=== PATIENT | male | born 1990 | race Caucasian/White ===

== ENCOUNTER 2022-07-03 14:10 | Emergency (ER) | payer OTHER, SELFPAY ==
[2022-07-03 14:20] VITALS: BP 128/83; PULSE 89; RESP 16; TEMP 37.3; O2SAT 99
--- NOTE | 2022-07-03 15:11 | ED.URI ---
HPI - URI/Sore Throat General Chief Complaint: Upper Respiratory Infection Stated Complaint: fever/sore throat Time Seen by Provider: 07/03/22 15:05 History of Present Illness HPI Narrative: 31-year-old male presented for complaint of sore throat, headache, fever, and vomiting for 3 days. Endorses fever up to 104. Last emesis was yesterday. He has not tried to eat anything today, but has kept down liquids today. Denies abdominal pain, shortness of breath, wheezing or lethargy. He is maintaining secretions. Taking tylenol and ibuprofen for symptoms. Denies sick contacts. Related Data Home Medications Medication Instructions Recorded Confirmed escitalopram oxalate 20 mg tablet 20 mg PO DAILY 07/03/22 07/03/22 omeprazole magnesium 20 mg 20 mg PO DAILY 07/03/22 07/03/22 capsule,delayed release (Acid Desizing Machine Operator Head End (omeprazole)) Allergies Allergy/AdvReac Type Severity Reaction Status Date / Time No Known Allergies Allergy Mild Verified 07/03/22 14:32 Review of Systems Review of Systems: CONSTITUTIONAL: reports body aches, fever, chills, sweats. EYES: Denies visual changes, redness, or discharge. ENT: Denies rhinorrhea, congestion, or otalgia. CARDIOVASCULAR: Denies chest pain, palpitations, or edema. RESPIRATORY: Denies dyspnea. GASTROINTESTINAL: Denies abdominal pain or diarrhea. SKIN: Denies rash, itching, or wounds. MUSCULOSKELETAL: Denies back pain, joint pain [facility] Family History Family History (Updated 12/23/13 @ 07:13 by DOCTOR UNKNOWN) Father Hypertension Family history of cleft palate Social History Social History Second hand tobacco smoke exposure: Yes Alcohol intake: never Exam Narrative: GENERAL: Ill-appearing, no acute distress. EYES: conjunctivae clear ENT: Mucous membranes moist. TMs pearly laughlin with normal light reflex bilaterally; no tragal tenderness. Oropharynx erythematous Tonsils enlarged 3+ with exudate. No drooling, no hoarseness, no trismus, uvula midline. No tripod positioning, hot potato voice, or soft palate swelling. NECK: Supple. No lymphadenopathy CHEST: Clear to auscultation, breath sounds equal. No respiratory distress, speaks in full sentences. HEART: Regular rate and rhythm. No murmur heard. SKIN: Warm, dry, no rash. NEURO: Alert and oriented x3. Course Course Emergency Course: Patient is aware of diagnosis, understands and agrees to treatment plan. Anticipatory guidance given. Patient agrees to follow-up as directed and is aware of reasons to seek care at the emergency department. Portions of this record may have been created with voice recognition software Level of Care: Express Care Visit Vital Signs Vital signs: Vital Signs Temperature 99.1 F 07/03/22 14:20 Pulse Rate 89 07/03/22 14:20 Respiratory Rate 16 07/03/22 14:20 Blood Pressure 128/83 07/03/22 14:20 Pulse Oximetry 99 07/03/22 14:20 Oxygen Delivery Room Air 07/03/22 14:20 Temperature 99.1 F 07/03/22 14:20 Pulse Rate 89 07/03/22 14:20 Respiratory Rate 16 07/03/22 14:20 Blood Pressure 128/83 07/03/22 14:20 Pulse Oximetry 99 07/03/22 14:20 Oxygen Delivery Room Air 07/03/22 14:20 MDM - URI/Sore Throat MDM Narrative Medical decision making narrative: strep result reviewed with pt. Advise supportive treatments. Patient is appropriate for outpatient treatment and follow-up. Differential Diagnosis Differential diagnosis: Likely upper respiratory infection, viral infection and pharyngitis Lab Data Labs: Strep Screen Positive Group A Strep *(Reference Range: Negative)* Discharge Plan Discharge Clinical Impression: Strep pharyngitis Patient Disposition: Home, Self-Care Condition: Stable Instructions: Antibiotic Form, Strep Throat (ED) Additional Instructions: - Take the antibiotic as directed. Fever and sore throat typically resolve within one to three days. Most
== END 2022-07-03 15:16 | disposition home or self-care (01) ==
PROVIDERS: Emergency Provider Nurse Practitioner Family
DX: J02.0 Streptococcal pharyngitis (principal)
CPT/HCPCS: 87880; 99213; G0463

== ENCOUNTER 2022-08-01 10:24 | Emergency (ER) | payer OTHER, SELFPAY ==
--- NOTE | 2022-08-01 10:53 | ED.URI ---
HPI - URI/Sore Throat General Chief Complaint: Upper Respiratory Infection Stated Complaint: cough,not feeling well Time Seen by Provider: 08/01/22 10:53 Source: patient Mode of arrival: ambulatory Limitations: no limitations History of Present Illness HPI Narrative: Patient is a 31-year-old male that presents with mild sore throat and cough for 3 days. Reports significant other has strep and would like to be tested. States they both had strep last month. Denies any ear pain, congestion, fever, chills, shortness of breath. Still able the eat and drink normally Related Data Home Medications Medication Instructions Recorded Confirmed escitalopram oxalate 20 mg tablet 20 mg PO DAILY 07/03/22 08/01/22 omeprazole magnesium 20 mg 20 mg PO DAILY 07/03/22 08/01/22 capsule,delayed release (Acid Recovery Specialist (omeprazole)) Allergies Allergy/AdvReac Type Severity Reaction Status Date / Time No Known Allergies Allergy Mild Verified 08/01/22 11:09 Review of Systems Review of Systems: All systems reviewed & are unremarkable except as noted in HPI and below Constitutional: Constitutional: Denies body ache(s), Denies fever(s), Denies headache(s), Denies malaise and Denies weakness Eyes: Eyes: Denies loss of vision ENT: Denies otalgia, Denies headache(s), Denies nasal congestion, Denies sinus pain and Reports sore throat Cardiovascular: Cardiovascular: Denies chest pain, Denies irregular heart rhythm and Denies dyspnea Respiratory: Respiratory: Reports cough and Denies dyspnea Gastrointestinal: Gastrointestinal: Denies abdominal pain, Denies melena, Denies hematochezia, Denies diarrhea, Denies nausea and Denies vomiting Musculoskeletal: Musculoskeletal: Denies back pain, Denies myalgias and Denies arthralgias Integumentary/Breasts: Skin/Breast: Denies pruritus and Denies rash Neurologic: Denies headache(s), Denies loss of vision and Denies weakness Psychiatric: Psychiatric: Reports no additional psychiatric complaints [facility] Family History Family History (Updated 12/23/13 @ 07:13 by DOCTOR UNKNOWN) Father Hypertension Family history of cleft palate Social History Social History Second hand tobacco smoke exposure: Yes Alcohol intake: never Comments At time of signature, agree with nursing past medical, surgical, social and family history. There is no relevant family history pertinent to the presenting complaint. Exam Const: General: cooperative, healthy appearing, comfortable, no acute distress and well nourished Nutritional Appearance: well nourished Orientation/consciousness: patient oriented x3 Limitations: no limitations HENMT: Head: normal to inspection, normocephalic and atraumatic Ears: hearing grossly normal bilaterally, external ears normal and TM's normal bilaterally Face/Nose/Sinus: Normal external nose present, normal facial exam, sinuses nontender and face symmetric Face and sinus: normal facial exam, sinuses nontender and face symmetric Mouth: Yes Normal oral and palatal mucosa present, Yes lip normal and Yes moist mucous membranes Teeth and gingiva: dentition normal Throat: uvula midline, abnormal tonsil bilateral erythema, hypertrophy 3+ and pitting and posterior oropharynx abnormal erythema Eyes: General: appearance normal, both eyes and all related structures Alignment and Position: alignment normal and position normal Periorbital: periorbital findings normal Eyelids: eyelids normal Pupils: Equal, round and reactive pupils present Neck: Neck: normal visual inspection, full ROM and supple Chest: Chest palpation & inspection: normal inspection of the chest and normal palpation of entire chest wall Resp: Effort & Inspection: normal respiratory effort and able to speak in complete sentences Auscultation: clear to auscultation bilaterally, no crackles, no rales, no rhonchi and no wheezes Cardio: Rate: regular rate Rhythm: regular rhythm Heart sounds: S1 normal heart sound prese
[2022-08-01 10:58] VITALS: BP 129/79; PULSE 72; RESP 15; TEMP 36.4; O2SAT 98
== END 2022-08-01 11:27 | disposition home or self-care (01) ==
PROVIDERS: Emergency Provider Nurse Practitioner Family; PCP Nurse Practitioner Family
DX: J06.9 Acute upper respiratory infection, unspecified (principal); K21.9 Gastro-esophageal reflux disease without esophagitis
CPT/HCPCS: 87081; 87880; 99213; G0463

== ENCOUNTER 2022-09-05 13:29 | Emergency (ER) | payer OTHER, SELFPAY ==
[2022-09-05 13:50] VITALS: BP 118/75; PULSE 104; RESP 16; TEMP 38.3; O2SAT 98
--- NOTE | 2022-09-05 14:09 | ED.URI ---
HPI - URI/Sore Throat General Chief Complaint: Upper Respiratory Infection Stated Complaint: sore throat/fever Time Seen by Provider: 09/05/22 14:14 Source: patient, RN notes reviewed and old records reviewed Mode of arrival: ambulatory Limitations: no limitations History of Present Illness HPI Narrative: 31-year-old male presents to the [facility] with complaints of a sore throat and fever that started late last night. Has taken 1 dose of ibuprofen. Has not taken any medications today. Has a history of depression and GERD. Onset (ago): day(s) (1) Related Data Home Medications Medication Instructions Recorded Confirmed escitalopram oxalate 20 mg tablet 20 mg PO DAILY 07/03/22 09/05/22 Allergies Allergy/AdvReac Type Severity Reaction Status Date / Time No Known Allergies Allergy Mild Verified 09/05/22 13:48 Review of Systems Review of Systems: All systems reviewed & are unremarkable except as noted in HPI and below Constitutional: Constitutional: Reports no additional constitutional complaints Eyes: Eyes: Reports no additional eye complaints ENT: Reports as per HPI and Reports sore throat Cardiovascular: Cardiovascular: Reports no additional cardiovascular complaints, Denies chest pain and Denies dyspnea Respiratory: Respiratory: Reports no additional respiratory complaints, Denies chest congestion, Denies cough and Denies dyspnea Gastrointestinal: Gastrointestinal: Reports no additional gastrointestinal complaints, Denies abdominal pain, Denies nausea and Denies vomiting Musculoskeletal: Musculoskeletal: Reports no additional musculoskeletal complaints Integumentary/Breasts: Skin/Breast: Reports system reviewed and no additional complaints, except as docu Neurologic: Reports system reviewed and no additional complaints, except as documented Psychiatric: Psychiatric: Reports no additional psychiatric complaints Allergic/Immunologic: Allergic/Immunologic: Reports no additional allergic/immunologic complaints [facility], [facility] Past Medical History Medical History Depression H/O gastroesophageal reflux (GERD) Family History Family History Father Hypertension Family history of cleft palate Social History Social History Second hand tobacco smoke exposure: Yes Alcohol intake: never Comments At the time of my signature, I reviewed and agree with the nursing past medical, surgical, social, and family history. There is no relevant family history pertinent to the patient complaint. Exam Const: General: cooperative, healthy appearing, comfortable, no acute distress, well developed, alert and well nourished Nutritional Appearance: well nourished and obese Orientation/consciousness: patient oriented x3 Limitations: no limitations HENMT: Head: normal to inspection Ears: hearing grossly normal bilaterally and external ears normal Face/Nose/Sinus: Normal external nose present, Normal nares present, Normal nasal mucous membranes and turbinates present and normal facial exam Face and sinus: normal facial exam Mouth: Yes Normal oral and palatal mucosa present, Yes lip normal and Yes moist mucous membranes Throat: posterior oropharynx normal, uvula midline and abnormal tonsil bilateral erythema, exudates and hypertrophy 3+ Eyes: General: appearance normal, both eyes and all related structures Alignment and Position: alignment normal Periorbital: periorbital findings normal Conjunctivae: conjunctivae normal Pupils: Equal, round and reactive pupils present EOM: EOMs intact bilaterally Neck: Neck: normal visual inspection, full ROM, no lymphadenopathy and no meningeal signs Chest: Chest palpation & inspection: normal inspection of the chest Resp: Effort & Inspection: normal respiratory effort and able to speak in complete sentences Auscultation: gilberto
[2022-09-05 14:15] VITALS: TEMP 38.3
[2022-09-05] MEDS: ACETAMINOPHEN 500 MG TABLET 1000 MG PO (14:15)
== END 2022-09-05 14:24 | disposition home or self-care (01) ==
PROVIDERS: Emergency Provider Nurse Practitioner
DX: J02.0 Streptococcal pharyngitis (principal); K21.9 Gastro-esophageal reflux disease without esophagitis; F32.A Depression, unspecified
CPT/HCPCS: 87880; 99213; A9270; G0463

== ENCOUNTER 2022-12-06 09:51 | Emergency (ER) | payer OTHER, SELFPAY ==
[2022-12-06 09:55] VITALS: BP 119/81; PULSE 79; RESP 16; TEMP 36.6; O2SAT 97
--- NOTE | 2022-12-06 10:42 | ED.URI ---
HPI - URI/Sore Throat General Chief Complaint: Upper Respiratory Infection Stated Complaint: Sore Throat Time Seen by Provider: 12/06/22 10:42 Source: patient, RN notes reviewed and old records reviewed Mode of arrival: ambulatory Limitations: no limitations History of Present Illness HPI Narrative: 32-year-old male presents to the [facility] with complaints of a sore throat for 2 days. No treatment [employer]. Denies any other symptoms. Denies any sick contacts. Related Data Home Medications Medication Instructions Recorded Confirmed escitalopram oxalate 20 mg tablet 20 mg PO DAILY 07/03/22 12/06/22 omeprazole magnesium 20 mg 20 mg PO DAILY 12/06/22 12/06/22 tablet,delayed release Allergies Allergy/AdvReac Type Severity Reaction Status Date / Time No Known Allergies Allergy Mild Verified 12/06/22 10:20 Review of Systems Review of Systems: All systems reviewed & are unremarkable except as noted in HPI and below Constitutional: Constitutional: Reports no additional constitutional complaints Eyes: Eyes: Reports no additional eye complaints ENT: Reports as per HPI and Reports sore throat Cardiovascular: Cardiovascular: Reports no additional cardiovascular complaints, Denies chest pain and Denies dyspnea Respiratory: Respiratory: Reports no additional respiratory complaints, Denies chest congestion, Denies cough and Denies dyspnea Gastrointestinal: Gastrointestinal: Reports no additional gastrointestinal complaints, Denies abdominal pain, Denies nausea and Denies vomiting Musculoskeletal: Musculoskeletal: Reports no additional musculoskeletal complaints Integumentary/Breasts: Skin/Breast: Reports system reviewed and no additional complaints, except as docu Neurologic: Reports system reviewed and no additional complaints, except as documented Psychiatric: Psychiatric: Reports no additional psychiatric complaints Allergic/Immunologic: Allergic/Immunologic: Reports no additional allergic/immunologic complaints [facility] Past Medical History Medical History Depression H/O gastroesophageal reflux (GERD) Family History Family History Father Hypertension Family history of cleft palate Social History Social History Second hand tobacco smoke exposure: Yes Alcohol intake: never Comments At the time of my signature, I reviewed and agree with the nursing past medical, surgical, social, and family history. There is no relevant family history pertinent to the patient complaint. Exam Const: General: cooperative, healthy appearing, comfortable, no acute distress, well developed, alert and well nourished Nutritional Appearance: well nourished Orientation/consciousness: patient oriented x3 Limitations: no limitations HENMT: Head: normal to inspection Ears: hearing grossly normal bilaterally and external ears normal Face/Nose/Sinus: Normal external nose present, Normal nares present, Normal nasal mucous membranes and turbinates present and normal facial exam Face and sinus: normal facial exam Mouth: Yes Normal oral and palatal mucosa present, Yes lip normal and Yes moist mucous membranes Throat: posterior oropharynx normal, uvula midline and abnormal tonsil on the left (Tonsillar stone noted) crypts; no erythema and no exudates Eyes: General: appearance normal, both eyes and all related structures Alignment and Position: alignment normal Periorbital: periorbital findings normal Pupils: Equal, round and reactive pupils present EOM: EOMs intact bilaterally Neck: Neck: normal visual inspection, full ROM, no lymphadenopathy and no meningeal signs Chest: Chest palpation & inspection: normal inspection of the chest Resp: Effort & Inspection: normal respiratory effort and able to speak in complete sentences Auscultation: clear to auscultation bilaterally,
== END 2022-12-06 10:51 | disposition home or self-care (01) ==
PROVIDERS: Emergency Provider Nurse Practitioner; PCP Nurse Practitioner Family
DX: J35.8 Other chronic diseases of tonsils and adenoids (principal); K21.9 Gastro-esophageal reflux disease without esophagitis; F32.A Depression, unspecified
CPT/HCPCS: 87081; 87880; 99213; G0463

== ENCOUNTER 2023-06-16 16:08 | Emergency (ER) | payer OTHER, SELFPAY ==
[2023-06-16 16:14] VITALS: BP 107/74; PULSE 104; RESP 20; TEMP 37.7; O2SAT 94
--- NOTE | 2023-06-16 21:14 | PC.NURSE ---
Pt no answer when called for room and not found after visual inspection of waiting room
--- NOTE | 2023-06-16 21:34 | PC.NURSE ---
pt called with no answer x2
== END 2023-06-16 21:14 | disposition left against medical advice (07) ==
LOC: ANHED 21:42
PROVIDERS: PCP Nurse Practitioner Family
DX: R10.9 Unspecified abdominal pain (principal)
CPT/HCPCS: 99199

== ENCOUNTER 2024-04-15 15:54 | Emergency (ER) | payer OTHER, SELFPAY ==
--- NOTE | ~2024-04-15 | CT_ITS ---
EXAMINATION: CT abdomen pelvis w con DATE: 04/15/2024 19:08 INDICATION: Left lower quadrant abdominal pain. TECHNIQUE: Computed tomography (CT) of the abdomen and pelvis was performed with 100 mL Omnipaque 350 intravenous contrast. Automated exposure control and iterative reconstruction technique were employe d. The dose-length product was 1577.27 mGy-cm. COMPARISON: None. FINDINGS: The visualized portions of the lung bases demonstrate airspace opacities in left lower lobe , consistent with pneumonia. There is mild atelectasis in right lower lobe. No pleural effusion. The heart size is normal. No pericardial effusion. The liver, gallbladder, spleen, pancreas, adrenal glan ds, and kidneys are normal. There are no dilated loops of bowel. The appendix is normal. There are no pathologically enlarged lymph nodes. There is no free intraperitoneal fluid. There is mild lumbar sp ondylosis. IMPRESSION: 1. Left lower lobe pneumonia. Reviewed, dictated and finalized at location A. [facility]MIN[facility]
[2024-04-15 15:58] VITALS: BP 148/81; PULSE 108; RESP 16; TEMP 37.2; O2SAT 96
--- NOTE | 2024-04-15 16:39 | ED_ITS ---
HPI - Nausea/Vomiting/Diarrhea General Chief complaint: Nausea/Vomiting/Diarrhea <Syeda Cueto PA-C - Last Filed: 04/15/24 16:45> Stated complaint: vomiting <Syeda Cueto PA-C - Last Filed: 04/15/24 16:45> Time Seen by Provider: 04/15/24 16:39 <HOUSTON Ramos Last Filed: 04/15/24 16:45> Focused HPI: Patient is a 33 y/o male who presents to the ED with c/o N/V. Patient reports having persistent nausea vomiting over the last 4 days. States he has been unable to keep down any food or drink. Feels very dehydrated. Also reports diarrhea, dizziness, lightheadedness, myalgias, back pain, headache, diffuse abdominal pain, fevers up to 102? F. Also reports having a cough and runny nose since yesterday. Denies known sick contacts. Was seen in urgent care on Friday and prescribed Zofran, but denies improvement with this. GENERAL: Ill-appearing, morbidly obese with BMI of 40.7, and in no acute distress. HEAD: Normocephalic, atraumatic. CHEST: Clear to auscultation. ?No respiratory distress. No significant focal lung sounds. HEART: Tachycardic with regular rhythm.? ABD: Diffuse pain throughout abdomen, no rebound. Normoactive BS. NEURO: ?Alert and oriented x3. Patient screened in triage and initial orders placed.? ?Additional care and disposition to be based upon?diagnostic testing and treatment. <Syeda Cueto PA-C - Last Filed: 04/15/24 16:45> Source: patient <Syeda Cueto PA-C - Last Filed: 04/15/24 16:45> Mode of arrival: ambulatory <Syeda Cueto PA-C - Last Filed: 04/15/24 16:45> Limitations: no limitations <HOUSTON Ramos Last Filed: 04/15/24 16:45> History of Present Illness HPI Narrative: I agree the above HPI <Antwon Oscar MD - Last Filed: 04/16/24 12:32> Related Data Home medications: Home Medications ?Medication ?Instructions ?Recorded ?Confirmed ?Last Taken ?Type escitalopram oxalate 20 mg tablet 20 mg PO DAILY 07/03/22 12/06/22 Unknown History omeprazole magnesium 20 mg 20 mg PO DAILY 12/06/22 12/06/22 Unknown History tablet,delayed release <Syeda Cueto PA-C - Last Filed: 04/15/24 16:45> Allergies/Adverse reactions: Allergies Allergy/AdvReac Type Severity Reaction Status Date / Time amoxicillin Allergy Severe Swelling Verified 04/15/24 20:39 <Syeda Cueto PA-C - Last Filed: 04/15/24 16:45> Review of Systems 2 Review of Systems: All systems reviewed & are unremarkable except as noted in HPI and below <Antwon Oscar MD - Last Filed: 04/16/24 12:32> [facility] Past Medical History Medical History: Medical History Depression H/O gastroesophageal reflux (GERD) <Syeda Cueto PA-C - Last Filed: 04/15/24 16:45> Family History Family History: Family History Father Hypertension Family history of cleft palate <HOUSTON Ramos Last Filed: 04/15/24 16:45> Social History Social History: Social History Second hand tobacco smoke exposure: Yes Alcohol intake: never <Syeda Cueto PA-C - Last Filed: 04/15/24 16:45> Exam 2 Narrative: APPEARANCE: Uncomfortable appearing HEAD: normocephalic, atraumatic. EYES: PERRLA/EOMI, conjunctivae clear. NOSE: Normal no drainage EARS:TMS clear with good light reflex. THROAT: Pharynx clear, no exudate. NECK: Supple. No adenopathy, no masses. RESPIRATORY: Airway patent, respirations nonlabored. Clear to auscultation bilaterally, no rales, rhonchi, wheezing. CARDIOVASCULAR: Regular rate and rhythm without murmurs rubs or gallops. ABDOMINAL: Soft, nontender, nondistended, normal bowel sounds MUSCULOSKELETAL: Moves all extremities. Strength/ROM intact, No edema, No calf tenderness. NEURO: Alert. Cranial nerves II through XII intact. Grossly intact SKIN: Warm, dry. Normal Color <Antwon Oscar MD - Last Filed: 04/16/24 12:32> Course Vital Signs Vital signs: Vital Signs Temperature 98.9 F 04/15/24 15:58 Pulse Rate 108 H 04/15/24 15:58 Respiratory Rate 16 04/15/24 15:58 Blood Pressure 148/81 H 04/15/24 15:58 Pulse Oximetry 96 04/15/24 15:58 Temperature 100.3 F H 04/15/24 20:12 Pulse Rate 95 04/15/24 20:53 Respiratory Rate 19 04/15/24 20:53 Blood Pressure 132/78 04/15/24 20:12 Pulse Oximetry 99 04/15/24 20:53 <Syeda Cueto PA-C - Last Filed: 04/15/24 16:45> Vital Signs Temperature 98.9 F 04/15/24 15:58 Pulse Rate 108 H 04/15/24 15:58 Respiratory Rate 16 04/15/24 15:58 Blood Pressure 148/81 H 04/15/24 15:58 Pulse Oximetry 96 04/15/24 15:58 Temperature 100.3 F H 04/15/24 20:12 Pulse Rate 95 04/15/24 20:53 Respiratory Rate 19 04/15/24 20:53 Blood Pressure 132/78 04/15/24 20:12 Pulse Oximetry 99 04/15/24 20:53 <Antwon Oscar MD - Last Filed: 04/16/24 12:32> MDM - Nausea/Vomiting/Diarrhea MDM Narrative Medical decision making narrative: MSE by ANTHONY in triage. <Syeda Cueto PA-C - Last Filed: 04/15/24 16:45> MSE by ANTHONY in triage. 33-year-old male presenting to the emergency department for evaluation for nausea vomiting diarrhea. Patient did feel improved with treatment. Patient did have a low-grade fever but this did improve with Tylenol. Patient was also treated with IV fluids and Zofran. Patient is afebrile with no leukocytosis and hemoglobin of 15.1. No acute abnormalities on the patient's CMP. UA was negative for infection patient was negative for influenza RSV and for COVID. CT scan was concerning for left lower lobe pneumonia. Patient was started on antibiotics in the emergency department. Patient was discharged home. Patient was comfortable plan for discharge and close follow-up. Patient was also provided viewed oral and Tessalon Perles for symptom control. <Antwon Oscar MD - Last Filed: 04/16/24 12:32> Differential Diagnosis Differential diagnosis: Likely other (COVID, RSV, influenza, pneumonia, colitis, diverticulitis) < Antwon Oscar MD - Last Filed: 04/16/24 12:32> Lab Data Attestation: I reviewed the patient's lab results. <Antwon Oscar MD - Last Filed: 04/16/24 12:32> Result diagrams: 04/15/24 16:54 04/15/24 16:54 <Syeda Cueto PA-C - Last Filed: 04/15/24 16:45> Labs: Lab Results 04/15/24 04/15/24 Range/Units 16:54 16:59 WBC 8.7 (4.5-10.0) K/mm3 RBC 5.22 (4.6-6.20) M/mm3 Hgb 15.1 (14.0-18.0) g/dL Hct 46.9 (42.0-52.0) % MCV 89.8 (80-100) fl MCH 28.9 (26-34) pg MCHC 32.2 (32-36) g/dl RDW 12.3 (11.5-14.5) % Plt Count 200 (150-375) k/mm3 MPV 9.7 (7.4-10.4) fl Immature Gran % (Auto) 0.2 (0-0.5) % Neut % (Auto) 82.5 H (45.5-73.1) % Lymph % (Auto) 9.0 L (18.3-44.2) % Cannon % (Auto) 4.0 (2.6-8.5) % Eos % (Auto) 3.8 (0-4.4) % Baso % (Auto) 0.5 (0.2-1.2) % Lymph # (Auto) 0.78 L (0.9-3.2) K/mm3 Cannon # (Auto) 0.4 (0.1-0.6) K/mm3 Eos # (Auto) 0.3 (0-0.3) K/mm3 Baso # (Auto) 0.0 (0.0-0.1) K/mm3 Abs Immat Gran (auto) 0.02 (0.00-0.031) K/mm3 Absolute Neuts (auto) 7.2 H (1.3-6.7) K/mm3 Absolute Nucleated RBC 0.000 (0.0-0.012) K/mm3 Nucleated RBC % 0.0 (0.0-0.2) % Sodium 135 L (137-145) mmol/L Potassium 4.5 (3.4-5.0) mmol/L Chloride 102 (98-107) mmol/L Carbon Dioxide 25 (22-30) mmol/L Anion Gap 8 (4-12) mmol/L BUN 17 (9-20) mg/dL Creatinine 1.30 (0.7-1.3) mg/dL Estim Creat Clear Calc 89 ml/min Estimated GFR > 60 (59 - ) Glucose 106 (65-110) mg/dL Lactic Acid 1.2 (0.7-2.0) mmol/L Calcium 9.0 (8.4-10.2) mg/dL Total Bilirubin 0.7 (0.2-1.3) mg/dL AST 35 (17-59) U/L ALT 38 (6-50) U/L Alkaline Phosphatase 72 (38-126) U/L Total Protein 8.0 (6.3-8.2) g/dL Albumin 4.7 (3.5-5.1) g/dL Lipase 37 (23-300) U/L Urine Color Dark yellow (Yellow) Urine Appearance Clear (Clear) Urine pH 5.5 (5.0-9.0) Ur Specific [place]on 1.031 (1.001-1.035) Urine Protein 1+ H (Negative) mg/dL Urine Glucose (UA) Negative (Negative) mg/dL Urine Ketones 2+ H (Negative) mg/dL Ur Blood (Man) Negative (Negative) Urine Nitrate Negative (Negative) Urine Bilirubin Negative (Negative) Urine Urobilinogen 1.0 (<2.0) mg/dL Leukocyte Esterase Rfl Negative (Negative) JIMMY/UL Urine RBC 0-2 (0-2) /hpf Urine WBC 0-5 (0-3) /hpf Ur Squamous Epith Cells None seen (Few) /hpf Urine Bacteria None seen /hpf Urine Casts 0-2 Influenza A (RT-PCR) Negative (Negative) Influenza B (RT-PCR) Negative (Negative) RSV (RT-PCR) Negative (Negative) SARS-CoV-2 RNA (RT-PCR) Negative (Negative) <Syeda Cueto PA-C - Last Filed: 04/15/24 16:45> Lab Results 04/15/24 04/15/24 Range/Units 16:54 16:59 WBC 8.7 (4.5-10.0) K/mm3 RBC 5.22 (4.6-6.20) M/mm3 Hgb 15.1 (14.0-18.0) g/dL Hct 46.9 (42.0-52.0) % MCV 89.8 (80-100) fl MCH 28.9 (26-34) pg MCHC 32.2 (32-36) g/dl RDW 12.3 (11.5-14.5) % Plt Count 200 (150-375) k/mm3 MPV 9.7 (7.4-10.4) fl Immature Gran % (Auto) 0.2 (0-0.5) % Neut % (Auto) 82.5 H (45.5-73.1) % Lymph % (Auto) 9.0 L (18.3-44.2) % Cannon % (Auto) 4.0 (2.6-8.5) % Eos % (Auto) 3.8 (0-4.4) % Baso % (Auto) 0.5 (0.2-1.2) % Lymph # (Auto) 0.78 L (0.9-3.2) K/mm3 Cannon # (Auto) 0.4 (0.1-0.6) K/mm3 Eos # (Auto) 0.3 (0-0.3) K/mm3 Baso # (Auto) 0.0 (0.0-0.1) K/mm3 Abs Immat Gran (auto) 0.02 (0.00-0.031) K/mm3 Absolute Neuts (auto) 7.2 H (1.3-6.7) K/mm3 Absolute Nucleated RBC 0.000 (0.0-0.012) K/mm3 Nucleated RBC % 0.0 (0.0-0.2) % Sodium 135 L (137-145) mmol/L Potassium 4.5 (3.4-5.0) mmol/L Chloride 102 (98-107) mmol/L Carbon Dioxide 25 (22-30) mmol/L Anion Gap 8 (4-12) mmol/L BUN 17 (9-20) mg/dL Creatinine 1.30 (0.7-1.3) mg/dL Estim Creat Clear Calc 89 ml/min Estimated GFR > 60 (59 - ) Glucose 106 (65-110) mg/dL Lactic Acid 1.2 (0.7-2.0) mmol/L Calcium 9.0 (8.4-10.2) mg/dL Total Bilirubin 0.7 (0.2-1.3) mg/dL AST 35 (17-59) U/L ALT 38 (6-50) U/L Alkaline Phosphatase 72 (38-126) U/L Total Protein 8.0 (6.3-8.2) g/dL Albumin 4.7 (3.5-5.1) g/dL Lipase 37 (23-300) U/L Urine Color Dark yellow (Yellow) Urine Appearance Clear (Clear) Urine pH 5.5 (5.0-9.0) Ur Specific [place] 1.031 (1.001-1.035) Urine Protein 1+ H (Negative) mg/dL Urine Glucose (UA) Negative (Negative) mg/dL Urine Ketones 2+ H (Negative) mg/dL Ur Blood (Man) Negative (Negative) Urine Nitrate Negative (Negative) Urine Bilirubin Negative (Negative) Urine Urobilinogen 1.0 (<2.0) mg/dL Leukocyte Esterase Rfl Negative (Negative) JIMMY/UL Urine RBC 0-2 (0-2) /hpf Urine WBC 0-5 (0-3) /hpf Ur Squamous Epith Cells None seen (Few) /hpf Urine Bacteria None seen /hpf Urine Casts 0-2 Influenza A (RT-PCR) Negative (Negative) Influenza B (RT-PCR) Negative (Negative) RSV (RT-PCR) Negative (Negative) SARS-CoV-2 RNA (RT-PCR) Negative (Negative) <Antwon Oscar MD - Last Filed: 04/16/24 12:32> Imaging Data Radiologist's impression: Impressions Abdomen/Pelvis CT 04/15/24 19:09 IMPRESSION: 1. Left lower lobe pneumonia. <Antwon Oscar MD - Last Filed: 04/16/24 12:32> Discharge Plan Discharge Clinical Impression: Pneumonia <Syeda Cueto PA-C - Last Filed: 04/15/24 16:45> Patient Disposition: Home, Self-Care <Syeda Cueto PA-C - Last Filed: 04/15/24 16:45> Condition: Stable <Syeda Cueto PA-C - Last Filed: 04/15/24 16:45> Instructions: Antibiotic Form, Pneumonia (ED) <Syeda Cueto PA-C - Last Filed: 04/15/24 16:45> Additional Instructions: Antibiotic as directed until completed. Albuterol for shortness of breath. Tessalon Perles for cough. Have close follow-up with your primary care physician. If you have any worsening symptoms then please call or return to the emergency department. <Syeda Cueto PA-C - Last Filed: 04/15/24 16:45> Patient Language: Jordanian <Syeda Cueto PA-C - Last Filed: 04/15/24 16:45> Prescriptions: New levofloxacin 750 mg tablet 750 mg PO DAILY 7 Days Qty: 7 0RF albuterol sulfate 90 mcg/actuation HFA aerosol inhaler 1 inh inhalation QID PRN (Reason: shortness of breath or wheezing) Qty: 6.7 0RF benzonatate 100 mg capsule 100 mg PO TID PRN (Reason: cough) Qty: 14 0RF No Action omeprazole magnesium 20 mg Tablet,Delayed Release (Dr/Ec) 20 mg PO DAILY escitalopram oxalate 20 mg tablet 20 mg PO DAILY <HOUSTON Ramos Last Filed: 04/15/24 16:45> Follow-up/Referrals: Fahad,Blaire Escalante APRN [Primary Care Provider] - <Syeda Cueto PA-C - Last Filed: 04/15/24 16:45>
[2024-04-15 17:01] LABS: Basophils Percent Auto 0.5 % (0.2-1.2); Eosinophils Absolute Auto 0.3 K/mm3 (0-0.3); Eosinophils Percent Auto 3.8 % (0-4.4); Hematocrit 46.9 % (42.0-52.0); Hemoglobin 15.1 g/dL (14.0-18.0); Immature Granulocyte Absolute 0.02 K/mm3 (0.00-0.031); Immature Granulocyte Percent A 0.2 % (0-0.5); Lymphocytes Absolute Auto 0.78 K/mm3 (0.9-3.2); Mean Corpuscular HGB Conc 32.2 g/dl (32-36); Mean Corpuscular Hemoglobin 28.9 pg (26-34); Mean Corpuscular Volume 89.8 fl (80-100); Mean Platelet Volume 9.7 fl (7.4-10.4); Monocytes Absolute Auto 0.4 K/mm3 (0.1-0.6); Neutrophils Absolute Auto 7.2 K/mm3 (1.3-6.7); Neutrophils Percent Auto 82.5 % (45.5-73.1); Platelet Count Result 200 k/mm3 (150-375); Red Blood Count 5.22 M/mm3 (4.6-6.20); Red Cell Distribution Width 12.3 % (11.5-14.5); White Blood Count 8.7 K/mm3 (4.5-10.0)
[2024-04-15 17:08] LABS: Add Urine Microscopic? YES; Appearance Urine Clear (Clear); Bacteria Urine None Seen /hpf; Bilirubin Urine Negative (Negative); Blood Urine Negative (Negative); Color Urine Dark Yellow (Yellow); Glucose Urine UA Negative (Negative); Ketones Urine 2+ mg/dL (Negative); Leukocyte Esterase Ur Negative LEU/UL (Negative); Nitrate Urine Negative (Negative); Non Pathogenic Casts 0-2; Protein Urine 1+ mg/dL (Negative); RBC Urine 0-2 /hpf (0-2); Specific Grav Ur 1.031 (1.001-1.035); Squamous Epithelial Cell Urine None Seen /hpf (Few); WBC Urine 0-5 /hpf (0-3); pH Urine 5.5 (5.0-9.0)
[2024-04-15 17:09] LABS: Lactic Acid Reflex 1.2 mmol/L (0.7-2.0)
[2024-04-15 17:10] LABS: Alanine Aminotransferase 38 U/L (6-50); Albumin Level 4.7 g/dL (3.5-5.1); Alkaline Phosphatase 72 U/L (38-126); Anion Gap 8 mmol/L (4-12); Aspartate Amino Transferase 35 U/L (17-59); Bilirubin,Total 0.7 mg/dL (0.2-1.3); Blood Urea Nitrogen 17 mg/dL (9-20); Carbon Dioxide 25 mmol/L (22-30); Chloride 102 mmol/L (98-107); Estimated CRCL calculation 89 ml/min; Estimated Glomerular Filt Rate > 60; Glucose 106 mg/dL (65-110); Lipase 37 U/L (23-300); Potassium 4.5 mmol/L (3.4-5.0); Sodium 135 mmol/L (137-145)
[2024-04-15 17:36] LABS: Influenza A QL RT-PCR Negative (Negative); Influenza B QL RT-PCR Negative (Negative); RSV RNA, RT-PCR Negative (Negative); SARS-CoV-2 RNA PCR Negative (Negative)
[2024-04-15] MEDS: SODIUM CHLORIDE 0.9% IV 1,000 ML 999 ML IV CONT ×2 (18:35→18:46)
[2024-04-15 18:38] VITALS: PULSE 108; RESP 16; TEMP 39.3; O2SAT 96
[2024-04-15] MEDS: FAMOTIDINE 20 MG/2 ML VIAL IV PUSH (18:41)
[2024-04-15] MEDS: METOCLOPRAMIDE HCL INJ 10 MG/2 ML VIAL IV PUSH (18:46)
[2024-04-15] MEDS: diphenhydrAMINE HCl INJ 50 MG/ML VIAL 25 MG IV PUSH (18:46)
[2024-04-15] MEDS: ACETAMINOPHEN 500 MG TABLET 1000 MG PO (18:54)
[2024-04-15 19:24] VITALS: TEMP 37.9
[2024-04-15 20:12] VITALS: BP 132/78; PULSE 94; RESP 20; TEMP 37.9; O2SAT 98
[2024-04-15] MEDS: AZITHROMYCIN 250 MG TABLET 500 MG PO (20:34)
[2024-04-15] MEDS: levoFLOXacin 750 MG TABLET PO (20:46)
[2024-04-15 20:53] VITALS: PULSE 95; RESP 19; O2SAT 99
== END 2024-04-15 20:50 | disposition home or self-care (01) ==
PROVIDERS: Physician Assistant; Emergency Provider Emergency Medicine; PCP Nurse Practitioner Family
DX: J18.9 Pneumonia, unspecified organism (principal); Z20.822 Contact with and (suspected) exposure to COVID-19; K21.9 Gastro-esophageal reflux disease without esophagitis; F32.A Depression, unspecified
CPT/HCPCS: 36415; 74177; 80053; 81001; 83605; 83690; 85025; 87637; 96361; 96374; 96375; 99284; A9270; J1200; J2765; J7030; Q9967